=== PATIENT | male | born 1995 | race African-American/Black ===

== ENCOUNTER 2016-05-22 09:52 | Emergency (ER) | payer OTHER ==
[~2016-05-22] VITALS: Ht 177.8 cm; Wt 68.0 kg
[2016-05-22 10:38] LABS: ABSOLUTE BASOPHIL COUNT 0 /CUMM (0.0-0.2); ABSOLUTE EOSINOPHIL COUNT 0.3 /CUMM (0.0-0.7); ABSOLUTE GRANULOCYTE CT 5.1 /CUMM (1.4-6.5); ABSOLUTE LYMPH COUNT 1.7 /CUMM (1.2-3.4); ABSOLUTE MONOCYTE COUNT 0.4 /CUMM (0.10-0.60); BASOPHIL % 0.6 % (0.0-2.0); EOSINOPHIL % 3.9 % (0-5); GRANULOCYTE % 67.2 % (42.2-75.2); HEMATOCRIT 48.7 % (42-52); MEAN CORPUSCULAR HGB 29.8 PG (27.0-31.0); MEAN CORPUSCULAR HGB CONC 33.5 G/DL (33.0-37.0); MEAN CORPUSCULAR VOLUME 89.1 FL (80.0-94.0); MEAN PLATELET VOLUME 7.8 FL (7.4-10.4); PLATELET COUNT 252 /CUMM (130-400); RBC DISTRIBUTION WIDTH 13.1 % (11.5-14.5); RED BLOOD CELL CT 5.47 /CUMM (4.70-6.10); WHITE BLOOD CELL COUNT 7.7 /CUMM (4.8-10.8)
--- NOTE | 2016-05-22 10:50 | ED GI/GU/ABDOMINAL COMPLAINT ---
History of Present Illness General Chief Complaint: Abdominal Pain/Flank Pain Stated Complaint: ABD PAIN Source: patient Exam Limitations: no limitations Vital Signs & Intake/Output Vital Signs & Intake/Output Vital Signs Date Time Temp Pulse Resp B/P Pulse O2 O2 Flow FiO2 Ox Delivery Rate 05/22 1221 97.0 88 20 123/74 96 Room Air 05/22 1125 98.0 80 20 123/75 98 Room Air 05/22 0959 97.9 87 16 159/86 98 Room Air Allergies Coded Allergies: No Known Allergies (05/22/16) Reconcile Medications No Known Home Medications Triage Note: PT STATES HE IS HAVING TIGHTNESS IN HIS ABD. PT STATES HE IS HAVING PAIN IN HIS RIGHT FLANK AREA PAIN COMES AND GOES AND RADIATES INTO HIS GROIN. PAIN HAS BEEN ON AND OFF FOR A MONTH Triage Nurses Notes Reviewed? yes HPI: This patient is a 20-year-old male who presented to the emergency department today for multiple complaints. Patient reported that approximately one year ago he had sexual intercourse with a new partner without using any protection. He reported that approximately 6 months later he started to develop some symptoms, "itching above where my genitals start." The patient reported that about 1 month ago he started to develop intermittent pain in his right lower abdomen. The patient reported that the pain comes and goes without any provoking or palliative factors. He was unable to get the pain and number on a pain scale. He reported that it hurts sometimes after he eats and mostly at night. The patient denied any radiation of the pain. He denied any fevers, chills, chest pain, difficulty breathing, flank pain, nausea, vomiting, urinary burning, urgency, frequency, blood in the urine, urethral discharge, genital lesions, or any other associated symptoms. The patient reported that he did have chlamydia when he was 15 years old. No other history of sexually transmitted diseases. (CALVIN ECHEVERRIA PA-C) Past History Travel History Traveled to [place] past 21 day No Medical History Any Pertinent Medical History? 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 No (CALVIN ECHEVERRIA PA-C) Review of Systems Review of Systems Constitutional: Reports: no symptoms. EENTM: Reports: no symptoms. Respiratory: Reports: no symptoms. Cardiovascular: Reports: no symptoms. GI: Reports: see HPI. Genitourinary: Reports: see HPI. Musculoskeletal: Reports: no symptoms. Skin: Reports: see HPI. Neurological/Psychological: Reports: no symptoms. All Other Systems: Reviewed and Negative (CALVIN ECHEVERRIA PA-C) Physical Exam Physical Exam Gastrointestinal: normal bowel sounds, soft, non-tender, no organomegaly, NO REBOUND OR GUARDING. nO mCbURNEY'S POINT TENDERNESS. nEGATIVE rOVSING SIGN. nEGATIVE PSOAS SIGN. nEGATIVE OBTURATOR SIGN. nEGATIVE Holder SIGN. nO MASSES APPRECIATED. nO INGUINAL LYMPHADENOPATHY APPRECIATED. Comments: Well-developed well-nourished person in no acute distress HEENT: Normal EENT exam, head normocephalic, moist mucous membranes Pupils equally round and reactive to light. Neck: Supple, no lymphadenopathy Back: Normal gait. Normal inspection. No CVA tenderness Cardiovascular: Regular rate and rhythm with no murmurs, rubs, or gallops Respiratory: No respiratory distress. Speaking in full sentences Genitalia: Normal external genitalia with no evidence of any lesions or edema. No ulcerations or rashes. No urethral discharge. Extremity: Full equal pulses Neuro: Alert oriented x3, cranial nerves II through XII grossly intact. Skin: No appreciable rash on exposed skin, skin is warm and dry. Psych: Mood and affect is normal Core Measures ACS in differential dx? No Severe Sepsis Present: No Septic Shock Present: No (CALVIN ECHEVERRIA PA-C) Progress Differential Diagnosis: appendicitis, biliary colic, bowel obstruction, colon cancer, cholecystitis, diverticulitis, epididymitis, gastritis, hepatitis, ischemic bowel, inflamm bowel dis, pancreatitis, prostatitis, PUD/GERD, perforated viscous, pyelonephritis, STD, testicular torsion, ureterolithiasis, urinary retention, urethritis, UTI/pyelo Plan of Care: Orders Procedure Date/time Status Add-on Test (ER Only) 05/22 1059 Active Add-on Test (ER Only) 05/22 1041 Active CULTURE,URINE 05/22 1007 Active VDRL 05/22 1007 Active LIPASE 05/22 1007 Complete DIRECT BILIRUBIN 05/22 1007 Complete COMPREHENSIVE METABOLIC PANEL 05/22 1007 Complete CBC WITHOUT DIFFERENTIAL 05/22 1007 Complete AMYLASE 05/22 1007 Complete CHLAMYDIA-GC DNA PROBE 05/22 1005 Active URINALYSIS 05/22 1004 Complete Laboratory Tests 05/22/16 1020: Anion Gap 7, Estimated GFR > 60, BUN/Creatinine Ratio 13.8, Glucose 101 H, Calcium 10.0, Total Bilirubin 0.5, Direct Bilirubin 0.4, AST 17, ALT 25, Alkaline Phosphatase 73, Total Protein 7.1, Albumin 4.5, Globulin 2.6, Albumin/ Globulin Ratio 1.7, Amylase 92, Lipase 83, CBC w Diff NO MAN DIFF REQ, RBC 5.47, MCV 89.1, MCH 29.8, RDW 13.1, MPV 7.8, Gran % 67.2, Lymphocytes % 22.8, Monocytes % 5.5, Eosinophils % 3.9, Basophils % 0.6, Absolute Granulocytes 5.1, Absolute Lymphocytes 1.7, Absolute Monocytes 0.4, Absolute Eosinophils 0.3, Absolute Basophils 0, PUBS MCHC 33.5 05/22/16 1007: RPR Titer/FTA Pending 05/22/16 1005: Urine Color YEL, Urine Clarity CLEAR, Urine pH 6.0, Ur Specific Cabins >= 1.030 , Urine Protein NEG, Urine Ketones NEG, Urine Nitrite NEG, Urine Bilirubin NEG, Urine Urobilinogen 0.2, Ur Leukocyte Esterase NEG, Ur Microscopic EXAM NOT REQUIRED, Urine Hemoglobin NEG, Urine Glucose NEG Microbiology 05/22 104 URINE ROUT: GC DNA Probe - CAN Cancelled: Cancelled via OE: Error 05/22 1043 URINE ROUT: Chlamydia DNA Probe (OBEY) - CAN Cancelled: Cancelled via OE: Error 05/22 1007 URINE ROUT: Urine Culture - ORD 05/22 100 URINE ROUT: GC DNA Probe - RECD 05/22 100 URINE ROUT: Chlamydia DNA Probe (OBEY) - RECD Initial ED EKG: none Comments: 05/22/2016 12:04:49 PM: I was of the patient's bedside to update him on his laboratory results. No increase in white blood cell count. CMP within normal limits. This patient is afebrile. He is currently resting of the limbs stretcher and in no acute distress. He was medicated with both azithromycin and ceftriaxone to cover gonorrhea and chlamydia, results which have been sent from the lab. Discussed this patient the option for getting a CT scan of the abdomen and pelvis to rule out any acute intra-abdominal process such as appendicitis. Discussed this patient the risks of radiation. He is refusing CT scan at this time reported that if his symptoms get worse he will come back. (CALVIN ECHEVERRIA PA-C) Departure Departure Disposition: HOME OR SELF CARE Condition: Stable Clinical Impression Primary Impression: Abdominal discomfort Referrals: PATIENT HAS NO PRIMARY CARE DR (PCP/Family) Additional Instructions: If you do not hear from our lab in 5 days, you may call the emergency department for an update. Please return for any worsening symptoms or concerns. Departure Forms: Customer Survey General Discharge Information Prescriptions: Current Visit Scripts No Known Home Medications (CALVIN ECHEVERRIA PA-C) PA/NET MENDER Co-Sign Statement Statement: ED Attending supervision documentation- [] I saw and evaluated the patient. I have also reviewed all the pertinent lab results and diagnostic results. I agree with the findings and the plan of care as documented in the PA's/NET MENDER's documentation. x I have reviewed the ED Record and agree with the PA's/NET MENDER's documentation. [] Additions or exceptions (if any) to the PAs/NET MENDER's note and plan are summarized below: [] (SINDI MENJIVAR,RAEANN)
[2016-05-22 12:21] VITALS: BP 123/74
== END 2016-05-22 12:28 ==
LOC: ERH 09:52
PROVIDERS: Physician Assistant
DX: R10.31 Right lower quadrant pain (principal)
CPT/HCPCS: 81003; 87086; 87491; 87591; 96361; 96372; 96374; J0696; J1885